=== PATIENT | male | born 1970 | race Caucasian/White ===

== ENCOUNTER → 2019-04-12 08:01 | Outpatient (CLI) | payer MEDICARE ==
[2013-01-09 08:53] VITALS: BMI 33.0
[~2019-04-12 08:01] MED LIST: HYDROCODON-ACE1 EA10 PO; IBUPROFEN800 MG; LISINOPRIL10 MG PO; MORPHINE SULFAT15 M4 PO; OMEPRAZOLE40 MG PO; PLAVIX75 MG PO; PREDNISONE10 MG PO; XANAX1 MG PO
[2019-04-23 09:25] VITALS: BMI 29.4
== END | disposition home or self-care (01) ==
LOC: D.HCCARDIO 08:01
PROVIDERS: ATTEND Internal Medicine Interventional Cardiology
DX: I20.9 Angina pectoris, unspecified (principal); R06.02 Shortness of breath; R06.00 Dyspnea, unspecified; I10 Essential (primary) hypertension

== ENCOUNTER → 2019-04-13 11:07 | Outpatient (CLI) | payer MEDICARE ==
[2013-01-09 08:53] VITALS: BMI 33.0
--- NOTE | 2019-04-13 14:45 | EC ---
PATIENT:DARIUS SALVADOR DATE OF SERVICE: 04/13/19 SEX: M MEDICAL RECORD: [id number] DATE OF : 66 LOCATION:[facility] AGE OF PATIENT: 48 ADMISSION DATE: 04/13/19 REFERRING PHYSICIAN: INTERPRETING PHYSICIAN: AMELIA TIMMONS MD ECHOCARDIOGRAM REPORT ECHO CHARGES 4 ECHO COMPLETE Date: 04/13/19 CLINICAL DIAGNOSIS: ANGINA/SOB/TELLO H/O HTN ECHOCARDIOGRAPHIC MEASUREMENTS (adult normal given) AC root (d.<3.7cm) 3.6 cm LV Septum d (<1.2 cm> 1.3 cm Valve Excursion 2.2 cm LV Septum (systole) 2.0 cm Left Atria (s.<4.0cm> 4.6 cm LVPW d(<1.2cm) 1.3 cm RV (d.<2.3cm) 3.2 cm LVPW (sytole) 2.0 cm LV diastole(<5.6CM) 6.6 cm MV E-F(>70mm/sec) cm LV systole 4.4 cm LVOT Diameter 2.0 cm MV exc.(>10mm) cm Est.ejection fraction (50-75%) % DOPPLER: LVIT cm/sec A 53.0 cm/sec E 74.0 cm/sec LA cm/sec RVSP 35.0 mmHg LVOT 115 cm/sec AOP1/2T m/s Asc. Ao 194 cm/sec RVOT 71.0 cm/sec RA cm/sec PA 125 cm/sec AV Gradient Peak 15.1 mmHg AV Mean 7.9 mmHg AV Area 1.8 cm MV Gradient Peak 3.9 mmHg MV Mean 1.3 mmHg MV Area cm COMMENTS: OP - HC Front Office Director: Jason LACY DEN[place] Metal Machinist: 1 Dr. Timmons TAPE# PACS Pericardial Effusion N DATE OF SERVICE: 04/13/2019 PROCEDURE: Echocardiogram. FINDINGS: 1. Left ventricular chamber size is mildly dilated. Left ventricular systolic function is preserved at 50%. 2. Left atrium is enlarged at 4.6 cm. Right atrium and right ventricular chamber sizes are as well mildly dilated. 3. Valvular structures have normal structure and motion. ECHOCARDIOGRAM REPORT [id number] DARIUS SALVADOR 4. Doppler interrogation reveals [id number] mitral regurgitation, mild tricuspid regurgitation, no other valvular insufficiency or stenosis. Pulmonary systolic pressure is estimated at 35 mmHg. 5. No evidence of pericardial effusion or left ventricular thrombus. TRANSINT:[id number] Voice Confirmation ID: [id number] DOCUMENT ID: [id number] AMELIA TIMMONS MD at 1445 CC: [id number] DICTATION DATE: 04/13/19 1423 HEALTH INFORMATION INTERNSHIP: 04/13/19 1440 REG [facility] [address] [place] [id number]
[2019-04-23 09:25] VITALS: BMI 29.4
--- NOTE | 2019-04-24 09:52 | ST ---
PATIENT:DARIUS SALVADOR MEDICAL RECORD: [id number] SEX: M [facility]ATION:[facility] ORDER #: ADMISSION DATE: 04/13/19 AGE OF PATIENT: 48 REFERRING PHYSICIAN: INTERPRETING PHYSICIAN: AMELIA COYLE MD DATE OF SERVICE: 04/13/2019 PROCEDURE: Nuclear stress test. INDICATION: Angina, shortness of breath, and hypertension. He was exercised on standard Lexiscan protocol with 33 mCi of sestamibi injected at peak stress, 11 mCi used previously for rest images. FINDINGS: Gated SPECT reveals a decreased ejection fraction at 42%, decreased thickening, and brightening throughout the inferior segments. SPECT imaging Cardiolite was used as myocardial perfusion agent. There is a mixed perfusion defect inferiorly and apically. This includes the basal, mid, apical inferior segments as well as the apex itself. There is reversibility throughout the entire defect. OVERALL IMPRESSION: This is an intermediate risk abnormal nuclear stress test with a relatively large area that is mixed, partially fixed, partially reversible throughout the entire inferior wall as well as the apex with a decreased ejection fraction at 42% in this patient with no past history of myocardial infarction to suggest a previous myocardial infarction and damian-infarct ischemia with ongoing symptomatology. We will proceed with coronary angiography as followup study. TRANSINT:[id number] Voice Confirmation ID: [id number] DOCUMENT ID: [id number] AMELIA COYLE MD at 0952 CC: LYN SOLORIO [id number] DICTATION DATE: 04/13/19 1510 TEMPLE MEAT CUTTER: 04/14/19 0411 DEP CLI 04/13/19 [place] [id number] [place] [id number]
== END | disposition home or self-care (01) ==
LOC: D.HCCARDIO 11:07
PROVIDERS: ATTEND Internal Medicine Interventional Cardiology
DX: I20.9 Angina pectoris, unspecified (principal); R06.02 Shortness of breath; I10 Essential (primary) hypertension

== ENCOUNTER 2019-04-23 08:48 | Outpatient (CLI) | payer MEDICARE ==
[~2019-04-23] VITALS: Ht 177.8 cm; Wt 93.2 kg
--- NOTE | ~2019-04-23 | HEMODYNAMI ---
PATIENT:DARIUS SALVADOR MEDICAL RECORD: [id number] : 66 LOCATION:D.CAT ADMISSION DATE: 04/23/19 Generatedon:04/23/201911:53 Patient name: DARIUS SALVADOR Patient #: [id number] : 1970 Date of study: 04/23/2019 Page: Of Hemodynamic Procedure Report Patient Data Patient Demographics Procedure consent was obtained First Name: DARIUS Gender: Male Last Name: MODESTO : 1970 Middle Initial: MAYDA Age: 48 year(s) Patient #: [id number] Race: SSN: [id number] Additional ID: [id number] Contact details Address: [address] [place] [address] State: [place] City: [place] Zip code: [address] Past Medical History Allergies: No known allergies Admission Admission Data Admission Date: 04/23/2019 Admission Time: 8:48 Arrival Date: 04/23/2019 Arrival Time: 0:00 Admit Source: Other Insurance Payor: Medicare [facility] #: [id number] Height (in.): 70 BSA: 2.11 (m2) Height (cm.): 177.8 BMI: 29.48 (kg/m2) Weight (lbs.): 205.43 Weight (kg.): 93.18 Lab Results Lab Result Date: 04/23/2019 Lab Result Time: 9:02 Biochemistry Name Units Result Min Max BUN mg/dl 18 --(---*)-- 7 18 Creatinine mg/dl 1 --(--*-)-- 0.6 1.3 CBC Name Units Result Min Max Hematocrit % 47 --(-*--)-- 42 54 Hemoglobin g/dl 16.2 --(--*-)-- 13.5 17.5 Procedure Procedure Types Cath Procedure Diagnostic Procedure [facility] w/Coronaries FFR/IVUS FFR Initial Intra-Coronary IVUS Initial PCI Procedure Coronary Stent Coronary Stent Initial Procedure Description Procedure Date Procedure Date: 04/23/2019 Procedure Start Time: 11:20 Procedure End Time: 11:53 Procedure Staff Name Function Carlos Timmons MD Performing Physician Mauricio Warren RT Scrub Jack Ponce RT Monitor Akash Blackwell RN Nurse Eugenie Iverson RT Scrub Procedure Data Cath Procedure Fluoroscopy Diagnostic fluoroscopy Total fluoroscopy Time: 5.4 time: 5.4 min min Diagnostic fluoroscopy Total fluoroscopy dose: 888 dose: 888 mGy mGy Contrast Material Contrast Material Type Amount (ml) Isovue 300 146 Entry Location Entry Primary Successful Side Size Upsize Upsize Entry Closure Succes sful Closure Location (Fr) 1 (Fr) 2 (Fr) Remarks Device Remarks Femoral Right 5 Fr 6 Fr Exoseal artery Short Estimated blood loss: 10 ml Diagnostic catheters Device Type Used For End Catheter Placement MULTIPACK Pigtail 5 Fr Procedure catheter MULTIPACK JL 4.0 5Fr Procedure catheter MULTIPACK 3DRC 5Fr Procedure catheter Procedure Complications No complications Procedure Medications Medication Administration Route Dosage 0.9% NaCl I.V. 100 ml/hr Oxygen etCO2 Nasal cannula 2 l/min Heparin Flush Bag added to field 2 bags (1000units/500ml NS) Lidocaine 2% added to field 20 Versed I.V. 2 mg Fentanyl I.V. 100 mcg Versed I.V. 2 mg Fentanyl I.V. 100 mcg Versed I.V. 2 mg Heparin Bolus I.V. 4000 units Integrilin (Bolus I.V. 8.5 ml 2mg/ml) Integrilin (Bolus wasted 1.5 ml 2mg/ml) Plavix P.O. 600 mg Hemodynamics Rest BSA: 2.11 (m2) HGB: 16.2 (g/dl) O2 Consumption: Estimated: 243.93 (ml/min) O2 Co nsumption indexed: Estimated:115.61 (ml/min/m) Heart Rate: 59 (bpm) Snapshots Pre Cath Intra NCS Post Cath Vital Signs Time Heart Resp SPO2 etCO2 NIBP (mmHg) Rhythm Pain Sedation Rate (ipm) (%) (mmHg) Status Level (bpm) 11:06:00 64 22 97 0 115/72(84) NSR 0 (11) 10(A) , No pain 11:10:18 68 30 98 41.1 106/65(89) NSR 0 (11) 10(A) , No pain 11:14:30 78 16 96 30.7 116/68(83) NSR 0 (11) 10(A) , No pain 11:18:46 71 20 97 32.9 104/64(78) NSR 0 (11) 10(A) , No pain 11:22:56 73 14 88 26.9 94/56(83) NSR 0 (11) 9(A) , No pain 11:27:06 72 13 95 25.4 109/63(79) NSR 0 (11) 9(A) , No pain 11:31:16 76 13 92 20.2 107/57(79) NSR 0 (11) 9(A) , No pain 11:35:32 77 12 95 11.9 84/55(77) NSR 0 (11) 9(A) , No pain 11:39:34 79 14 96 47.9 102/69(90) NSR 0 (11) 10(A) , No pain 11:43:43 79 16 96 46.4 98/69(91) NSR 0 (11) 10(A) , No pain 11:48:43 80 11 32.2 125/82(100) NSR 0 (11) 10(A) , No pain 11:52:42 47.2 No Cuff NSR 0 (11) 10(A) , No pain Medications Time Medication Route Dose Verified Delivered Reason Notes Effectiveness by by 11:08:17 0.9% NaCl I.V. 100 Akash Akash Per physician ml/hr Rishi Blackwell RN RN 11:08:26 Oxygen etCO2 2 Akash Akash for low 02 sats Nasal l/min Rishi Blackwell cannula RN RN 11:08:37 Heparin Flush added 2 Akash Akash used for Bag to bags Rishi Blackwell procedure (1000units/500ml field NERI RN NS) 11:08:48 Lidocaine 2% added 20ml Akash Akash for local to vial Rishi Blackwell anesthetic field DARON NERI 11:18:53 Versed I.V. 2 mg Akash Akash for sedation Rishi Blackwell RN RN 11:19:03 Fentanyl I.V. 100 Akash Akash for sedation mcg Rishi Blackwell RN RN 11:20:33 Versed I.V. 2 mg Akash Akash for sedation Rishi Blackwell RN RN 11:20:40 Fentanyl I.V. 100 Akash Akash for sedation mcg Rishi Blackwell RN RN 11:22:54 Versed I.V. 2 mg Akash Akash for sedation Rishi Blackwell RN RN 11:30:03 Heparin Bolus I.V. 4000 Akash Akash for units Rishi Blackwell anticoagulation RN RN 11:30:16 Integrilin I.V. 8.5 Akash Akash for (Bolus 2mg/ml) ml Rishi Blackwell antiplatelet RN RN therapy 11:30:30 Integrilin wasted 1.5 Akash Akash to sharp's (Bolus 2mg/ml) ml Rishi Blackwell RN RN 11:43:17 Plavix P.O. 600 Akash Akash for mg Rishi Blackwell antiplatelet RN RN therapy Procedure Log Time Note 10:56:20 Informed consent obtained and on chart 10:58:23 Admit Source: Other 10:58:52 Procedure Status Elective Heart Cath (OP). 10:58:55 Akash Blackwell RN sent for patient. Start room use. 10:58:56 Time tracking: Regular hours (M-F 7:00 - 5:00) 10:58:59 Plan of Care:Hemodynamics will remain stable., Cardiac rhythm will remain stable., Comfort level will be maintained., Respiratory function will remain adequate., Patient/ family verbilizes understanding of procedure., Procedure tolerated without complication., Recovers from procedure without complications.. 11:00:05 ACC Patient presents with Unstable Angina CCS Anginal Class 3--Marked limitation of physical activity, angina occurs with ordinary activity.. 11:00:49 ACCPatient has been prescribed/administered the following anti-anginal medication within the last 2 weeks: YEVGENIY-Inhibitor 11:00:54 Patient received from Pre/Post Procedure Room to CCL 1 Alert and oriented. Tansferred to table in Supine position. 11:01:00 Warm blankets applied, and keegan hugger turned on for patient comfort. 11:01:01 Correct patient and procedure confirmed by team. 11:01:01 ECG and BP/O2 sat monitors applied to patient. 11:01:02 Pre-procedure instructions explained to patient. 11:01:02 Pre-op teaching completed and patient verbalized understanding. 11:01:09 H&P Date Dictated: 04/03/2019 Within 30 days and on chart., H&P Addendum completed by physician on day of procedure. (MUST COMPLETE FOR ALL OUTPATIENTS). 11:02:34 Patient allergic to No known allergies 11:03:23 Patient Height : 70 inches 11:03:27 Patient Weight : 205.43 lbs 11:03:44 Insurance Payor : Medicare 11:03:56 Arrival Date: 04/23/2019 12:00:00 AM 11:04:33 Lab Result : Hemoglobin 16.2 g/dl 11:04:33 Lab Result : Creatinine 1 mg/dl 11:04:33 Lab Result : BUN 18 mg/dl 11:04:33 Lab Result : Hematocrit 47 % 11:04:52 Vital chart was started 11:04:53 Baseline sample Acquired. 11:04:55 Rhythm: sinus rhythm 11:04:56 Full Disclosure recording started 11:05:00 Family in waiting room. 11:05:02 Patient NPO since Midnight. 11:05:03 Is the patient allergic to Iodine/contrast media? No. 11:05:07 Is patient on blood thinner?No 11:05:08 Patient diabetic? No. 11:05:10 Previous problem with sedation/anesthesia? No ? 11:05:12 Snore? Yes 11:05:12 Sleep apnea? No 11:05:19 Deviated septum? No 11:05:20 Opens mouth fully? Yes 11:05:21 Sticks out tongue? Yes 11:05:24 Airway obstruction? Yes COPD 11:05:26 Dentures? No ? 11:05:34 Pre procedure: right dorsailis pedis pulse 2+ Normal; easily identifiable; not easily obliterated 11:05:38 IV patent on arrival in left forearm with 0.9% NaCl at KVO. 11:05:41 Lab results completed and on chart. 11:05:43 Right groin area was prepped with chlora-prep and draped in sterile fashion 11:05:45 Alarms reviewed by R. N. 11:05:45 Sharps counted by scrub and verified by R.N. 11:05:48 Use device set Femoral Dx 11:05:49 ACIST Syringe (21071) opened to sterile field. 11:05:49 Bag Decanter (2002S) opened to sterile field. 11:05:50 Medline Cath Pack ([id number]) opened to sterile field. 11:05:51 ACIST Hand Control (26019) opened to sterile field. 11:05:51 ACIST Manifold (25920) opened to sterile field. 11:05:52 DIAGNOSTIC Multipack 5Fr catheter set (SH5798) opened to sterile field. 11:05:52 Tegaderm 4 x 4 (1626W) opened to sterile field. 11:05:53 EMERALD Guide Wire (422-801) opened to sterile field. 11:05:54 SHEATH 5FR Delphi (UYP019) opened to sterile field. 11:08:17 0.9% NaCl 100 ml/hr I.V. was administered by Akash Blackwell RN; Per physician; 11:08:26 Oxygen 2 l/min etCO2 Nasal cannula was administered by Akash Blackwell RN; for low 02 sats; 11:08:37 Heparin Flush Bag (1000units/500ml NS) 2 bags added to field was administered by Akash Blackwell RN; used for procedure; 11:08:48 Lidocaine 2% 20ml vial added to field was administered by Akash Blackwell RN; for local anesthetic; 11:11:02 2) 60-89 Mildly reduced kidney function, and other findings (as for stage 1) point to kidney disease. 11:13:01 Maximum allowable contrast dose (3.7 X eGFR X 0.75)233 ml. 11:15:49 Physician arrived 11:15:50 --------ALL STOP TIME OUT------ 11:15:51 Final Timeout: patient, procedure, and site verified with staff and physician. All members of the team are in agreement. 11:15:53 Right groin site verified by team. 11:16:05 FAILED ALLENS 11:16:12 Fire Safety Assessment: A--An alcohol-based skin anteseptic being used preoperatively., C--Open oxygen or nitrous oxide is being used., D--An ESU, laser, or fiber-optic light is being used. 11:16:16 Physical assessment completed. ASA score P 2 - A patient with mild systemic disease as per Carlos Timmons MD. 11:16:21 Sedation plan: IV Moderate Sedation Medication:Versed, Fentanyl 11:18:53 Versed 2 mg I.V. was administered by Akash Lorigan RN; for sedation; 11:19:03 Fentanyl 100 mcg I.V. was administered by Akash Blackwell RN; for sedation; 11:20:06 Local anesthetic to right femoral artery with Lidocaine 2% by Carlos Timmosn MD.INITIAL ACCESS ONLY 11:20:22 Procedure started. 11:20:33 Versed 2 mg I.V. was administered by Akash Blackwell RN; for sedation; 11:20:36 A 5 Fr sheath was inserted into the Right Femoral artery 11:20:40 Fentanyl 100 mcg I.V. was administered by Akash Blackwell RN; for sedation; 11:20:42 A MULTIPACK Pigtail 5 Fr catheter was advanced over the wire and used for Procedure. 11:20:49 Zero performed for pressure channel P1 11::19 Zero performed for pressure channel P1 11::19 Zero performed for pressure channel P1 11:22:37 LV hemodynamics recorded. 11:22:42 LV gram done using LION 11:22:48 EF : 50 % 11:22:50 Catheter removed. 11::54 Versed 2 mg I.V. was administered by Akash Blackwell RN; for sedation; 11::58 A MULTIPACK JL 4.0 5Fr catheter was advanced over the wire and used for Procedure. 11:23:40 LCA angiography performed. 11:24:58 Catheter removed. 11:25:06 A MULTIPACK 3DRC 5Fr catheter was advanced over the wire and used for Procedure. 11:25:35 RCA angiography performed. 11:26:11 Catheter removed. 11:26:13 Proceeding to intervention. 11:26:41 INFLATOR Merit BasixCompak (AW6486) opened to sterile field. 11:26:43 SHEATH 6FR Delphi (OPG469) opened to sterile field. 11:26:43 Evarts Verrata Plus pressure wire (83030V) opened to sterile field. 11:27:27 GUIDE 6FR 3DRC SH catheter ([id number]) opened to sterile field. 11:28:01 Sheath upsized to a 6 Fr Short. 11:28:31 6 Fr 3DRC SH guide catheter was inserted over the wire 11:29:26 PRESSURE wire advanced. 11:30:03 Heparin Bolus 4000 units I.V. was administered by Akash Blackwell RN; for anticoagulation; 11:30:16 Integrilin (Bolus 2mg/ml) 8.5 ml I.V. was administered by Akash Blackwell RN; for antiplatelet therapy; 11:30:30 Integrilin (Bolus 2mg/ml) 1.5 ml wasted was administered by Akash Blackwell RN; to sharp's; 11:31:50 IFR .94 11:32:04 Evarts [place] IVUS Catheter (39431P) opened to sterile field. 11:32:12 Wire removed. 11:33:57 FFR/IVUS 11:33:58 IVUS catheter advanced over wire. 11:35:13 IVUS pass to RCA lesion performed. 11:35:15 IVUS catheter removed over wire. 11:35:20 IVUS measurement 82.7 %. 11:38:26 Place stent Inflation Number: 1 A COBRA RX 3.5 X 15 Stent was prepped and advanced across the Prox RCA 83. The stent was deployed at 17 ELLEN for 0:10 (min:sec) 0. 11:39:08 Stent catheter was removed intact over wire. 11:42:34 Place stent Inflation Number: 1 A COBRA RX 3.5 X 30 Stent was prepped and advanced across the Dist RCA 70. The stent was deployed at 17 ELLEN for 0:10 (min:sec) 0. 11:42:54 Stent catheter was removed intact over wire. 11:42:55 Wire removed. 11:42:56 Guide catheter removed. 11:43:16 EXOSEAL 6Fr (EX600) opened to sterile field. 11:43:17 Plavix 600 mg P.O. was administered by Akash Blackwell RN; for antiplatelet therapy; 11:45:40 ACT drawn and resulted at 210 seconds. (normal therapeutic range 180-240 seconds). 11:49:08 Procedure type changed to Cath procedure, Diagnostic procedure, LHC, LHC w/Coronaries, FFR/IVUS, FFR Initial, Intra-Coronary IVUS Initial, PCI procedure, Coronary Stent, Coronary Stent Initial 11:49:37 Sheath removed intact; hemostasis achieved with Exoseal to the Right Femoral artery. 11:49:44 Procedure ended.(Physican Out) 11:50:30 Fluoroscopy time 05.40 minutes. 11:50:34 Fluoroscopy dose: 888 mGy 11:50:34 Flurop Dose total: 888 11:50:44 Dose Area Product 14203 mGy/cm. 11:50:51 Contrast amount:Isovue 300 146ml. 11:50:55 Maximum allowable dose exceeded? No. 11:50:58 Sharps counted by scrub and verified by R.N. 11:50:59 Insertion/operative site no bleeding no hematoma. 11:50:59 Insertion/operative site no bleeding no hematoma. 11:51:01 Post-op/insertion site Right Femoral artery dressed using a 4 x 4 and Tegaderm. 11:51:05 Post right femoral artery:stable, soft, clean and dry 11:51:07 Post Procedure Pulses reassessed and unchanged 11:51:11 Post-procedure physical assessment completed. ASA score P 2 - A patient with mild systemic disease as per Carlos Timmons MD. 11:51:14 Post procedure rhythm: unchanged. 11:51:17 Estimated blood loss: 10 ml 11:51:18 Post procedure instruction explained to patient.Patient verbalizes understanding. 11:51:19 Patient needs reinforcement of post procedure teaching. 11:51:19 Procedure and supply charges have been captured, reviewed, submitted and are correct. 11:53:12 Procedure Complication : No complications 11:53:13 Vital chart was stopped 11:53:13 See physician's report for complete and final results. 11:53:15 Report given to Pre/Post Procedure Room. 11:53:17 Patient transfered to Pre/Post Procedure Room with Stretcher. 11:53:18 Procedure ended. 11:53:18 Full Disclosure recording stopped 11:53:27 ACC-PCI Only Patient was given prescriptions, or instructed by Carlos Timmons MD to start/continue the following medications upon discharge: Aspirin, Plavix 11:53:28 End room use (Document Last) Intervention Summary Intervention Notes Time ActionType Lesion and Equipment Action# Pressure Duration Attributes Used 11:38:26 Place stent Prox RCA COBRA RX 1 17 00:10 3.5 X 15 Stent 11:42:34 Place stent Dist RCA COBRA RX 1 17 00:10 3.5 X 30 Stent Device Usage Item Name Manufacture Quantity Catalog Hospital Part Current Minimal Lot# / Number Charge Number Stock Stock Serial# Code ACIST Syringe Acist 1 59091 459147 202950 912899 20 (93443) Medical Systems Inc Bag Decanter Microtek 1 892539 27573 566308 5 (2001S) Medical Inc. Medline Cath Medline 1 [id number] 061585 53276 704725 5 Pack ([id number]) ACIST Hand Acist 1 08344 624950 199389 418188 5 Control Medical (32033) Systems Inc ACIST Manifold Acist 1 44535 277679 627484 993866 5 (17493) Medical Systems Inc DIAGNOSTIC Cardinal 1 JV5468 376399 30145 928552 30 Multipack 5Fr Health catheter set ([id number]) Tegaderm 4 x 4 3M 1 1626W 871354 179216 366712 5 (1626W) EMERALD Guide Cardinal 1 502-455 279869 751258 892294 5 Wire (502-455) Health SHEATH 5FR Terumo 1 SWC738 963291 074516 385120 5 Delphi (RHT404) MULTIPACK Cardinal 1 044705 5 Pigtail 5 Fr Health catheter MULTIPACK JL Cardinal 1 372751 5 4.0 5Fr Health catheter MULTIPACK 3DRC Cardinal 1 948165 5 5Fr catheter Health INFLATOR Merit Merit 1 XX8981 435838 970823 364417 15 BasAu FINANCIERS Medical (UT0867) SHEATH 6FR Terumo 1 KGN031 590063 286131 436400 40 Delphi (IFG657) Evarts Evarts 1 32097M 246276 602859016 069746 5 Verrata Plus pressure wire (21780F) GUIDE 6FR 3DRC Medtronic 1 [id number] 468517 249590 573064 1 SH catheter ([id number]) Evarts Evarts 1 18593H 658629 452899 071273 8 [place]ag[place] IVUS Catheter (09748I) COBRA RX 3.5 X Celonova 1 [id number] 061423 [id number] 0158903 2 [id number] 15 stent Biosciences () COBRA RX 3.5 X Celonova 1 [id number] 335367 [id number] [id number] 2 [id number] 30 stent Biosciences () EXOSEAL 6Fr Cardinal 1 EX600 096520 091255 772768 10 (EX600) Health Signature Audit [place] Stage Time Signature Unsigned Intra-Procedure 04/23/2019 Mauricio Warren 11:53:41 AM RT(R) Signatures Performing Physician : Signature : Carlos Timmons MD Date : Time : Monitor : Jack Ponce RT Signature : Date : Time : Nurse : Akash Blackwell Signature : RN Date : Time : [address] [place] [address]
[2019-04-23 09:25] VITALS: BP 118/83; Ht 177.8 cm; Wt 93.2 kg
[2019-04-23] MEDS ORDERED: HYDROCODON-ACE1 EA10 PO (09:31)
[2019-04-23] MEDS ORDERED: LISINOPRIL10 MG PO (09:31)
[2019-04-23] MEDS ORDERED: MORPHINE SULFAT15 M4 PO (09:31)
[2019-04-23] MEDS ORDERED: PREDNISONE10 MG PO (09:32)
[2019-04-23] MEDS ORDERED: XANAX1 MG PO (09:32)
[2019-04-23] MEDS ORDERED: IBUPROFEN800 MG (09:32)
[2019-04-23] MEDS ORDERED: OMEPRAZOLE40 MG PO (09:33)
[2019-04-23 09:43] LABS: BASOPHILS 0.2 % (0-2); HEMOGLOBIN 16.2 g/dL (13.5-17.5); IMMATURE GRANULOCYTES 0.4 % (0-5); LYMPHOCYTES 8.6 % (15-50); MCH 31.6 pg (26.0-34.0); MCHC 34.5 g/dL (31.0-37.0); MCV 91.6 fL (80.0-100.0); MEAN PLATELET VOLUME 9.5 fL (7.4-10.4); MONOCYTES 5.9 % (2-11); NEUTROPHILS 83.9 % (40-80); RBC 5.13 10x6/uL (4.20-6.10); RDW 13.4 % (11.5-14.5); WBC 10.1 10x3/uL (4.8-10.8)
[2019-04-23 09:47] LABS: CALC OSMOLALITY 280 mosm/kg (275-300); CALCIUM 8.6 mg/dL (8.5-10.1); CARBON DIOXIDE 27.6 mmol/L (21.0-32.0); CHLORIDE - SERUM 104 mmol/L (98-107); GLUCOSE 108 mg/dL (74-106); POTASSIUM - SERUM 4.3 mmol/L (3.5-5.1); SODIUM 139 mmol/L (136-145); UREA NITROGEN 18 mg/dL (7-18); eGFR NON AFRICAN AMERICAN 84 mL/min (90-120)
[2019-04-23 09:57] LABS: PLATELET COUNT 199 10x3/uL (130-400)
[2019-04-23] MEDS ORDERED: PLAVIX75 MG PO (12:10)
--- NOTE | 2019-04-23 12:15 | NUR ---
2L NC, NO RESP DISTRESS. RIGHT GROIN 6F EXOSEAL CDI, NO BLEEDING OR HEMATOMA NOTED. NO C/O PAIN OR NAUSEA. VSS. FAMILY AT BEDSIDE, CALL LIGHT WITHIN REACH.
[2019-04-23 12:35] LABS: CHOL - HDL RATIO 4.1 ratio (2.3-4.9); LDL-HDL RATIO 2.4 ratio (1.5-3.5)
--- NOTE | 2019-04-23 12:45 | NUR ---
RIGHT GROIN 6F EXOSEAL CDI, NO BLEEDING OR HEMATOMA NOTED. DENIES ANY NEEDS AT THIS TIME. VSS. FAMILY AT BEDSIDE. WILL CONTINUE TO MONITOR.
--- NOTE | 2019-04-23 13:00 | NUR ---
RESTING QUIETLY WITH EYES CLOSED. RIGHT GROIN 6F EXOSEAL CDI, NO BLEEDING OR HEMATOMA NOTED. DENIES ANY NEEDS. VSS. CALL LIGHT WITHIN REACH.
--- NOTE | 2019-04-23 13:30 | NUR ---
CONTINUES TO REST COMFORTABLY WITH NO C/O. RIGHT GROIN 6F EXOSEAL CDI, NO BLEEDING NOTED. DENIES ANY NEEDS. VSS. CALL LIGHT WITHIN REACH.
--- NOTE | 2019-04-23 14:30 | NUR ---
VOIDED 550 CC INTO URINAL.
--- NOTE | 2019-04-23 15:00 | NUR ---
HOB ELEVATED 30 DEGREES. RIGHT GROIN 6F EXOSEAL CDI, NO BLEEDING NOTED. SIPPING ON DRINK AND EATING SANDWICH WITH NO C/O NAUSEA. VSS. WILL CONTINUE TO MONITOR CLOSELY.
--- NOTE | 2019-04-23 15:30 | NUR ---
LEFT PIV D/C'D WITH CATHETER INTACT, BAND AID TO SITE. RIGHT GROIN 6F EXOSEAL CDI, NO BLEEDING NOTED. UP TO BEDSIDE TO GET DRESSED.
--- NOTE | 2019-04-23 15:35 | NUR ---
DISCHARGE INSTRUCTIONS AND PLAVIX PRESCRIPTION GIVEN TO PT AND FAMILY. VERBALIZED UNDERSTANDING.
--- NOTE | 2019-04-23 15:45 | NUR ---
TAKEN OUT VIA WHEELCHAIR BY CATH HEAD CHOPPER. LEFT FACILITY WITH FAMILY AND ALL PERSONAL BELONGINGS.
--- NOTE | 2019-04-24 09:53 | OP ---
PATIENT NAME: DARIUS SALVADOR MEDICAL RECORD: [id number] :66 LOCATION:D.CAT ADMISSION DATE: SURGEON: AMELIA COYLE MD DATE OF OPERATION: 04/23/2019 PROCEDURES: 1. PTCA stent RCA. 2. Intravascular ultrasound RCA. 3. IFR RCA. 4. Left heart catheterization. 5. Selective coronary angiography. 6. Left ventriculogram. INDICATION: Angina and coronary artery disease. PROCEDURE PERFORMED: After informed consent was obtained and after a detailed description of risks, benefits as well as alternative therapies, the patient elected to proceed with angiogram and angioplasty. The right femoral area was prepped and draped in normal sterile fashion. The right femoral artery was cannulated via modified Seldinger technique with placement of 6-Armenian sheath. All catheters exchanged through this sheath. FINDINGS: Left ventriculogram was performed in standard 30-degree LION view, reveals good cardiac wall motion, ejection fraction estimated 60%. SELECTIVE CORONARY ANGIOGRAPHY: 1. Left main is with no significant angiographic disease. 2. Left anterior descending has moderate irregularities, but no flow-limiting stenosis. 3. The left circumflex has moderate irregularities, but no flow-limiting stenosis. 4. Right coronary artery has 83% stenosis throughout the proximal and mid vessel confirmed by intravascular ultrasound. IFR; however, was normal. Due to the fact that this is such a significant stenosis and this would be the only thing that would explain his symptomatology, decision was made to go ahead and proceed with stenting. Stenting was undertaken with a 3.5 x 15 and 3.5 x30 Cobra stents. Result was 0% residual stenosis. OVERALL IMPRESSION: Successful percutaneous transluminal coronary angioplasty stent of the right coronary artery going from 83% initial stenosis to 0% residual. TRANSINT:[id number] Voice Confirmation ID: [id number] DOCUMENT ID: [id number] AMELIA COYLE MD at 0953 CC: [id number] DICTATION DATE: 04/23/19 1153 TWIST MAKER: 04/23/19 1208 DEP CLI 04/23/19 [place] [id number] [place] [id number]
== END 2019-04-23 15:45 | disposition home or self-care (01) ==
LOC: D.CATH 08:48
PROVIDERS: ATTEND Internal Medicine Interventional Cardiology
DX: R94.30 Abnormal result of cardiovascular function study, unspecified (principal); I20.0 Unstable angina; R06.02 Shortness of breath

== ENCOUNTER 2019-10-28 02:14 | Inpatient (IN) | payer MEDICARE ==
[~2019-10-28] VITALS: Ht 177.8 cm; Wt 95.3 kg
[2019-10-28] VITALS (9 sets, daily range): BP systolic 101–132; BP diastolic 65–93; BMI 30.1
[~2019-10-28 02:14] MED LIST changes: -IBUPROFEN800 MG; +IBUPROFEN800 MG PO
[2019-10-28] MEDS ORDERED: BAYER CHEWABLE81 MG PO (02:18)
--- NOTE | 2019-10-28 02:25 | NUR ---
FLU SWAB SENT TO LAB
[2019-10-28 02:35] LABS: BASOPHILS 0.1 % (0-2); EOSINOPHILS 0.9 % (0-7); HEMATOCRIT 51.1 % (42.0-54.0); HEMOGLOBIN 17.2 g/dL (13.5-17.5); IMMATURE GRANULOCYTES 0.6 % (0-5); LYMPHOCYTES 9.3 % (15-50); MCH 31.1 pg (26.0-34.0); MCHC 33.7 g/dL (31.0-37.0); MCV 92.4 fL (80.0-100.0); MEAN PLATELET VOLUME 9.6 fL (7.4-10.4); MONOCYTES 9.8 % (2-11); NEUTROPHILS 79.3 % (40-80); PLATELET COUNT 188 10x3/uL (130-400); RBC 5.53 10x6/uL (4.20-6.10); RDW 13.5 % (11.5-14.5); WBC 8.5 10x3/uL (4.8-10.8)
[2019-10-28 02:40] LABS: APTT 29.5 SECONDS (22.8-39.4); INR 0.97 (0.85-1.17); PROTIME 12.8 SECONDS (11.6-15.0)
[2019-10-28 02:41] LABS: CALC OSMOLALITY 277 mosm/kg (275-300); CALCIUM 8.7 mg/dL (8.5-10.1); CARBON DIOXIDE 25.5 mmol/L (21.0-32.0); CHLORIDE - SERUM 99 mmol/L (98-107); CREATININE - SERUM 1.5 mg/dL (0.6-1.3); D-DIMER-QUANTITATIVE 0.41 ug/mLFEU (0.20-0.54); GLUCOSE 101 mg/dL (74-106); POTASSIUM - SERUM 3.9 mmol/L (3.5-5.1); SODIUM 137 mmol/L (136-145); UREA NITROGEN 25 mg/dL (7-18); eGFR NON AFRICAN AMERICAN 52 mL/min (90-120)
[2019-10-28 03:04] LABS: ALBUMIN 3.7 g/dL (3.4-5.0); ALKALINE PHOSPHATASE 70 U/L (30-120); ALT (SGPT) 42 U/L (10-68); BILIRUBIN - TOTAL 0.38 mg/dL (0.2-1.3); CREATINE KINASE 494 UL (21-232); LIPASE 188 U/L (73-393); MAGNESIUM - SERUM 1.6 mg/dL (1.8-2.4); PRO BNP 176 pg/mL (0-125); PROTEIN - SERUM 6.8 g/dL (6.4-8.2); THYROID STIMULATING HORMONE 0.67 uIU/mL (0.36-3.74); TROPONIN-I 0.027 ng/mL (0.000-0.060)
[2019-10-28 03:05] LABS: CKMB 0.3 U/L (0.0-3.6)
[2019-10-28 04:00] LABS: APPEARANCE CLEAR (CLEAR); BILIRUBIN NEGATIVE (NEGATIVE); COLOR YELLOW (YELLOW); GLUCOSE NEGATIVE (NEGATIVE); KETONE SMALL mg/dL (NEGATIVE); NITRITE NEGATIVE (NEGATIVE); PROTEIN NEGATIVE (NEGATIVE); SPECIFIC GRAVITY 1.015 (1.005-1.020); UROBILINOGEN NORMAL (NORMAL)
--- NOTE | 2019-10-28 04:05 | NUR ---
PT TEMP INCREASED, EDP NOTIFIED.
[2019-10-28 04:08] LABS: UDS - AMPHET NEGATIVE QUAL (NEGATIVE); UDS - BARB NEGATIVE QUAL (NEGATIVE); UDS - BENZO NEGATIVE QUAL (NEGATIVE); UDS - COCAINE NEGATIVE QUAL (NEGATIVE); UDS - OPIATE POSITIVE QUAL (NEGATIVE); UDS - PCP NEGATIVE QUAL (NEGATIVE); UDS - THC NEGATIVE QUAL (NEGATIVE)
--- NOTE | 2019-10-28 04:41 | NUR ---
PT REPORTS DECREASE IN PAIN AFTER RECEIVING IV MORPHINE AND ZOFRAN ORDERED.
[2019-10-28] MEDS ORDERED: LIPITOR10 MG PO (05:17)
[2019-10-28] MEDS ORDERED: TESTOST CYP INJ 200 IM (05:25)
--- NOTE | 2019-10-28 11:41 | NUR ---
RECIEVED REPORT THIS MORNING, AND DID ASSESSMENT. PATIENT HAS HAD A FEVER. HE IS ON DROPLET ISO FOR FLU. FAMILY AT BEDSIDE IS VERY UPSET AND THEY ARE ARGUING OVER THE PATIENT. AT BEDSIDE WILL NOT WEAR HER FACE MASK.
--- NOTE | 2019-10-28 19:20 | NUR ---
RECEIVED UP ION BED WITH EYES OPEN AND TV ON. SPOUSE AT BEDSIDE WITH EYES CLOSED. NALERT AND ORIENTED X4. UP AD PEG. REMAINS IN DROPLET ISOLATION R/T FLU. O2@ 2 LITERS PER N/C IN PLACE. IV TO RIGHT CONRAD HERNÁNDEZ AT 125/HR. DENIES ANY NEEDS AT THIS TIME.
[2019-10-29] VITALS: BP 123/71
[2019-10-29 04:00] VITALS: BP 131/78
[2019-10-29 06:07] LABS: ANION GAP 12.1 mmol/L (8-16); CALCIUM 7.2 mg/dL (8.5-10.1); CARBON DIOXIDE 27.8 mmol/L (21.0-32.0); CREATININE - SERUM 1.2 mg/dL (0.6-1.3); MAGNESIUM - SERUM 1.6 mg/dL (1.8-2.4); POTASSIUM - SERUM 3.9 mmol/L (3.5-5.1)
[2019-10-29 06:11] LABS: BASOPHILS 0.2 % (0-2); EOSINOPHILS 0.8 % (0-7); HEMATOCRIT 42.4 % (42.0-54.0); HEMOGLOBIN 14.2 g/dL (13.5-17.5); IMMATURE GRANULOCYTES 0.2 % (0-5); LYMPHOCYTES 15.6 % (15-50); MCH 30.7 pg (26.0-34.0); MCHC 33.5 g/dL (31.0-37.0); MCV 91.8 fL (80.0-100.0); MEAN PLATELET VOLUME 9.3 fL (7.4-10.4); MONOCYTES 12.6 % (2-11); NEUTROPHILS 70.6 % (40-80); RBC 4.62 10x6/uL (4.20-6.10); RDW 13.7 % (11.5-14.5)
[2019-10-29 06:43] LABS: PLATELET COUNT 133 10x3/uL (130-400)
--- NOTE | 2019-10-29 08:19 | NUR ---
PT STATES HE WANTS REGULAR FOODS. I STATED I WILL ORDER REGULAR DIET FOR LUNCH. PT VERBALIZED UNDERSTANDING.
[2019-10-29 09:51] VITALS: BP 130/96
[2019-10-29 13:46] VITALS: Ht 177.8 cm; Wt 95.3 kg
[2019-10-29 14:00] VITALS: BP 136/70
[2019-10-29 16:00] VITALS: BP 102/60
--- NOTE | 2019-10-29 16:25 | NUR ---
I have reviewed this patient and I concur with the Shift Assessment completed by the Licensed Practical Nurse today this shift.
--- NOTE | 2019-10-29 19:14 | NUR ---
RECEIVED UP IN BED WITH SPOUSE AT BEDSIDE. ALERT AND ORIENTED X4. UP AD PEG TO B/R. O2@ 2 LITERS PER N/C. IV TOO RT FA WITH NS AT 50CC/HR. NO REDNESS OR SWELLING TO SITE. DSG CDI. TELEMETRY IN PLACE. REMAINS IN DROPLET ISOLATION R/T FLU TYPE A POSITIVE. DENIES ANY NEEDS AT THIS TIME.
[2019-10-29 20:00] VITALS: BP 108/75
--- NOTE | 2019-10-29 22:47 | NUR ---
REFUSED MORPHINE STATING " IT GIVES ME A HEADACHE AND I DON'T WANT IT".
[2019-10-30] VITALS: BP 108/71
[2019-10-30 04:00] VITALS: BP 127/75
[2019-10-30 06:09] LABS: BASOPHILS 0.2 % (0-2); EOSINOPHILS 2.4 % (0-7); HEMOGLOBIN 15.3 g/dL (13.5-17.5); IMMATURE GRANULOCYTES 0.2 % (0-5); LYMPHOCYTES 15.4 % (15-50); MCH 30.8 pg (26.0-34.0); MCV 90.5 fL (80.0-100.0); MEAN PLATELET VOLUME 9.4 fL (7.4-10.4); MONOCYTES 11.7 % (2-11); NEUTROPHILS 70.1 % (40-80); PLATELET COUNT 128 10x3/uL (130-400); RBC 4.97 10x6/uL (4.20-6.10); RDW 13.4 % (11.5-14.5); WBC 5.4 10x3/uL (4.8-10.8)
[2019-10-30 06:32] LABS: CALC OSMOLALITY 268 mosm/kg (275-300); CALCIUM 7.3 mg/dL (8.5-10.1); CARBON DIOXIDE 28.4 mmol/L (21.0-32.0); CHLORIDE - SERUM 99 mmol/L (98-107); CREATININE - SERUM 0.9 mg/dL (0.6-1.3); GLUCOSE 93 mg/dL (74-106); MAGNESIUM - SERUM 1.5 mg/dL (1.8-2.4); POTASSIUM - SERUM 4.2 mmol/L (3.5-5.1); SODIUM 134 mmol/L (136-145); UREA NITROGEN 14 mg/dL (7-18); eGFR NON AFRICAN AMERICAN > 90 mL/min (90-120)
--- NOTE | 2019-10-30 08:32 | EC ---
PATIENT:DARIUS SALVADOR DATE OF SERVICE: 10/28/19 SEX: M MEDICAL RECORD: [id number] DATE OF : [birth year] LOCATION:D.M2 D.210 AGE OF PATIENT: 49 ADMISSION DATE: 10/29/19 REFERRING PHYSICIAN: INTERPRETING PHYSICIAN: JARED SANCHEZ MD ECHOCARDIOGRAM REPORT ECHO CHARGES 4 ECHO COMPLETE Date: 10/28/19 CLINICAL DIAGNOSIS: DYSPNEA/FLU ECHOCARDIOGRAPHIC MEASUREMENTS (adult normal given) AC root (d.<3.7cm) 3.3 cm LV Septum d (<1.2 cm> 1.3 cm Valve Excursion 1.3 cm LV Septum (systole) 1.7 cm Left Atria (s.<4.0cm> 3.9 cm LVPW d(<1.2cm) 1.4 cm RV (d.<2.3cm) 4.3 cm LVPW (sytole) 1.8 cm LV diastole(<5.6CM) 5.7 cm MV E-F(>70mm/sec) cm LV systole 4.3 cm LVOT Diameter 2.5 cm MV exc.(>10mm) 2.0 cm Est.ejection fraction (50-75%) % DOPPLER: LVIT cm/sec A 76.0 cm/sec E 57.0 cm/sec LA cm/sec RVSP 24 mmHg LVOT 126 cm/sec AOP1/2T m/s Asc. Ao 188 cm/sec RVOT 98 cm/sec RA cm/sec PA 127 cm/sec AV Gradient Peak 14.13mmHg AV Mean 8.48 mmHg AV Area 3.4 cm MV Gradient Peak 2.59 mmHg MV Mean 1.58 mmHg MV Area cm COMMENTS: Graduation Coach: 2 ENIO GRAYSON Retail Marketing Manager: 3 Dr. Greene TAPE# PACS Pericardial Effusion N DATE OF SERVICE: Adequate 2D, color flow imaging, spectral Doppler, and M-Mode. LVH is present. LV internal dimensions are normal. Wall motion is normal. EF is greater than or equal to 55%. Aortic valve is tricuspid. No evidence of stenosis by Doppler interrogation. Left atrium is normal at 3.9 cm. Mitral valve shows no prolapse. Trace MR. Right-sided chambers are grossly normal. Trace TR. ECHOCARDIOGRAM REPORT [id number] DARIUS SALVADOR TRANSINT:[id number] Voice Confirmation ID: [id number] DOCUMENT ID: [id number] JARED SANCHEZ MD at 0832 CC: [id number] DICTATION DATE: 10/29/19934 LETTUCE TRIMMER: 10/29/19 1126 ADM IN [place] [id number] [place] [id number]
[2019-10-30 10:04] VITALS: BP 114/73
--- NOTE | 2019-10-30 13:43 | NUR ---
PT LYING IN BED. EYES CLOSED. CHEST RISING AND FLALING. BED LOW. CL IN REACH.
[2019-10-30 14:31] VITALS: BP 100/67
--- NOTE | 2019-10-30 14:39 | NUR ---
I have reviewed this patient and I concur with the Shift Assessment completed by the Licensed Practical Nurse today this shift.
[2019-10-30 15:34] LABS: ALBUMIN 3.2 g/dL (3.4-5.0); BILIRUBIN - DIRECT 0.1 mg/dL (0.00-0.30); BILIRUBIN - INDIRECT 0.1 mg/dL (0.00-1.00); BILIRUBIN - TOTAL 0.2 mg/dL (0.2-1.3); PROTEIN - SERUM 5.6 g/dL (6.4-8.2)
[2019-10-30] MEDS ORDERED: TAMIFLU75 MG PO (17:41)
--- NOTE | 2019-10-30 18:35 | NUR ---
RIGHT FA 20G IV DC'D WITH CATH INTACT. TELEMETRY DC'D. DISCHARGE INSTRUCTIONS GIVEN TO PT. PT VERBALIZED UNDERSTANDING. CHART COPY SIGNED. WILL GET WC TO TAKE PT DOWN STAIRS.
--- NOTE | 2019-10-30 18:37 | NUR ---
PT TAKEN DOWN VIA WC BY STAFF ELECTRONIC WARFARE OFFICER AND LEFT WITH SPOUSE IN PERSONAL VEHICLE.
--- NOTE | 2019-10-31 08:04 | MORECARE ---
CASE MANAGEMENT DISCHARGE SUMMARY PATIENT: DARIUS SALVADOR UNIT: [id number] ADM DATE: 10/29/19 AGE: 49 : [birth year] SEX: M ROOM/BED: D.2104 AUTHOR: SHAN KLINE PHYSICIAN: REFERRING PHYSICIAN: GARRISON DAVIS MD DATE OF SERVICE: 10/31/19 Discharge Plan Patient Name: DARIUS SALVADOR [facility] [facility] 1970 Planned Disposition: Home Anticipated Discharge Date: 10/30/19 Discharge Date: 10/30/2019 Expected LOS: 1 Initial Reviewer: [email or web address] Initial Review Date: 10/31/2019 Generated: 10/31/19 9:03 am Coverage Notice Reviewer: [email or web address] Melo Alexander Notice Issued Date-Time: 10/28/2019 18:41 Notice Type: Medicare Outpatient Observation Notice Notice Delivered To: Patient Relationship to Patient: Self Aadc Plans Staff Officer Name: Ramon Ramirez Delivery Method: HAND - Hand Delivered Analy Days: Prior Verbal Notification: Recipient Understood Notice: Yes Recipient Signature: Yes Med Rec Note Co-signed by Attending: Coverage Notice Comment: ANDREW delivered to and signed by patient. Original given to patient and one placed on the chart. Patient Name: DARIUS SALVADOR Page [phone] at 0804 All edits/amendments must be made on the electronic document DICTATION DATE: 10/31/19 08 CHHA: WALTER 10/31/19 08 RPT#: [id number] DC DATE:10/30/19 STATUS: DIS IN [facility] [address] [place] [address] END OF REPORT
== END 2019-10-30 18:41 | disposition home or self-care (01) | DRG 193 ==
LOC: D.ER 02:14 → D.M2 03:24 → OBSVTIME 03:24 → D.M2 10-29 14:12
PROVIDERS: Family Medicine; Internal Medicine Nephrology; ADMIT Family Medicine Adult Medicine; ATTEND Family Medicine Adult Medicine
DX: J10.1 Influenza due to other identified influenza virus with other respiratory manifestations (principal); J96.21 Acute and chronic respiratory failure with hypoxia; F17.213 Nicotine dependence, cigarettes, with withdrawal; N17.9 Acute kidney failure, unspecified; I25.10 Atherosclerotic heart disease of native coronary artery without angina pectoris; E83.42 Hypomagnesemia; J43.9 Emphysema, unspecified; I10 Essential (primary) hypertension

== ENCOUNTER → 2020-02-06 08:55 | Outpatient (CLI) | payer MEDICARE ==
[2019-10-29 13:46] VITALS: BMI 30.1
[~2020-02-06 08:55] MED LIST changes: +BAYER CHEWABLE81 MG PO; +LIPITOR10 MG PO; +TAMIFLU75 MG PO; +TESTOST CYP INJ 200 IM
== END | disposition home or self-care (01) ==
LOC: D.HCCARDIO 08:55
PROVIDERS: ATTEND Internal Medicine Cardiovascular Disease
DX: I25.10 Atherosclerotic heart disease of native coronary artery without angina pectoris (principal)

== ENCOUNTER 2020-02-13 07:57 | Outpatient (CLI) | payer MEDICARE ==
[~2020-02-13] VITALS: Ht 177.8 cm; Wt 94.1 kg
--- NOTE | ~2020-02-13 | HEMODYNAMI ---
PATIENT:DARIUS SALVADOR MEDICAL RECORD: [id number] : 66 LOCATION:D.CAT ADMISSION DATE: 02/13/20 Generatedon:02/13/202010:57 Patient name: DARIUS SALVADOR Patient #: [id number] : 1970 Date of study: 02/13/2020 Page: Of Hemodynamic Procedure Report Patient Data Patient Demographics Procedure consent was obtained First Name: DARIUS Gender: Male Last Name: MODESTO : 1970 Middle Initial: MAYDA Age: 49 year(s) Patient #: [id number] Race: SSN: [id number] Additional ID: [id number] Contact details [address]: [address] [place] [address] State: [place] City: [place] Zip code: [address] Past Medical History Allergies: No known allergies Admission Admission Data Admission Date: 02/13/2020 Admission Time: 7:57 Arrival Date: 02/13/2020 Arrival Time: 0:00 Admit Source: Other Insurance Payor: Medicare [facility] #: [id number] Height (in.): 69.69 BSA: 2.11 (m2) Height (cm.): 177 BMI: 30 (kg/m2) Weight (lbs.): 207.24 Weight (kg.): 94 Lab Results Lab Result Date: 02/13/2020 Lab Result Time: 0:00 CBC Name Units Result Min Max Hemoglobin g/dl 16.3 --(--*-)-- 13.5 17.5 Procedure Procedure Types Cath Procedure Diagnostic Procedure LHC LHC w/Coronaries Sedation Charges Moderate Sedation up to 15 minutes PCI Procedure PTCA PTCA Initial Hemochron ACT Test Procedure Description Procedure Date Procedure Date: 02/13/2020 Procedure Start Time: 10:38 Procedure End Time: 10:54 Procedure Staff Name Function Srinivas Caballero MD Performing Physician Erna Padilla RT Monitor Mily Bah RT Scrub Bela Land RN Nurse Procedure Data Cath Procedure Fluoroscopy Diagnostic fluoroscopy Total fluoroscopy Time: 3.5 time: 3.5 min min Diagnostic fluoroscopy Total fluoroscopy dose: 808 dose: 808 mGy mGy Contrast Material Contrast Material Type Amount (ml) Isovue 300 85 Entry Location Entry Primary Successful Side Size Upsize Upsize Entry Closure Succes sful Closure Location (Fr) 1 (Fr) 2 (Fr) Remarks Device Remarks Femoral Right 5 Fr 6 Fr Exoseal artery Short Estimated blood loss: 10 ml Diagnostic catheters Device Type Used For End Catheter Placement MULTIPACK JL 4.0 5Fr Procedure catheter MULTIPACK 3DRC 5Fr Procedure catheter MULTIPACK Pigtail 5 Fr Ventriculography catheter Procedure Complications No complications Procedure Medications Medication Administration Route Dosage 0.9% NaCl I.V. 100 ml/hr Oxygen etCO2 Nasal cannula 2 l/min Lidocaine 2% added to field 20 Heparin Flush Bag added to field 2 bags (1000units/500ml NS) Versed I.V. 2 mg Fentanyl I.V. 50 mcg Versed I.V. 2 mg Fentanyl I.V. 50 mcg Heparin Bolus I.V. 5000 units Integrilin (Bolus I.V. 8.5 ml 2mg/ml) Integrilin (Bolus wasted 1.5 ml 2mg/ml) Plavix P.O. 600 mg Hemodynamics Rest BSA: 2.11 (m2) O2 Consumption: Estimated: 256.62 (ml/min) O2 Consumption indexed : Estimated:121.62 (ml/min/m) Heart Rate: 76 (bpm) Pressure Samples Time Site Value (mmHg) Purpose Heart Use Rate(bpm) 10:42 LV 103/15,16 Snapshot 76 10:44 AO (69) Pullback 57 Gradients Valve Time Site Site Mean SEP/DFP Peak To Heart Use 1 2 (mmHg) (sec/min) Peak Rate (mmHg) (bpm) Aortic 10:44 LV AO 57 (69) Snapshots Pre Cath Intra NCS Post Cath Vital Signs Time Heart Resp SPO2 etCO2 NIBP (mmHg) Rhythm Pain Sedation Rate (ipm) (%) (mmHg) Status Level (bpm) 10:23:41 62 13 98 46.3 127/71(88) NSR 0 (11) 10(A) , No pain 10:27:51 70 16 98 41.8 117/71(89) NSR 0 (11) 10(A) , No pain 10:31:59 72 15 97 42.6 119/66(100) NSR 0 (11) 10(A) , No pain 10:35:54 68 13 96 42.6 105/70(83) NSR 0 (11) 10(A) , No pain 10:39:56 74 11 98 31.3 115/68(99) NSR 0 (11) 10(A) , No pain 10:44:04 78 14 98 35.8 117/63(85) NSR 0 (11) 10(A) , No pain 10:48:12 76 12 97 44.8 117/68(83) NSR 0 (11) 10(A) , No pain 10:52:17 78 14 98 36.6 131/75(90) NSR 0 (11) 10(A) , No pain Medications Time Medication Route Dose Verified Delivered Reason Notes Effectiveness by by 10:22:42 0.9% NaCl I.V. 100 Srinivas Bela used for ml/hr [place] procedure MD NERI 10:22:49 Oxygen etCO2 2 Srinivas Bela used for Nasal l/min [facility] procedure cannula MD NERI 10:22:54 Lidocaine 2% added 20ml Srinivas Pattersonory for local to vial [facility] anesthetic field MD DENISE 10:22:59 Heparin Flush added 2 Srinivas Srinivas used for Bag to bags [facility] procedure (1000units/500ml field MD DENISE NS) 10:38:18 Versed I.V. 2 mg Srinivas Bela for sedation [facility] MD, RN 10:38:23 Fentanyl I.V. 50 Srinivas Bela for sedation [facility] MD, RN 10:46:07 Versed I.V. 2 mg Srinivas Bela for sedation [facility] MD, RN 10:46:10 Heparin Bolus I.V. 5000 Srinivas Bela for verif ied units [facility] anticoagulation with Dr. MD NERI [place] 10:46:11 Fentanyl I.V. 50 Srinivas Bela for sedation [facility] MD, RN 10:46:24 Integrilin I.V. 8.5 Srinivas Bela for (Bolus 2mg/ml) ml [facility] antiplatelet RN therapy 10:46:48 Integrilin wasted 1.5 Srinivas Bela for (Bolus 2mg/ml) ml [facility] antiplatelet MD RN therapy 10:46:54 Plavix P.O. 600 Srinivas Cramer for mg [facility] Land antiplatelet RN therapy Procedure Log Time Note 10:03:52 Informed consent obtained and on chart 10:04:07 Procedure Status Elective Heart Cath (OP). 10:04:08 Time tracking: Regular hours (M-F 7:00 - 5:00) 10:04:10 Plan of Care:Hemodynamics will remain stable., Cardiac rhythm will remain stable., Comfort level will be maintained., Respiratory function will remain adequate., Patient/ family verbilizes understanding of procedure., Procedure tolerated without complication., Recovers from procedure without complications.. 10:04:13 Bela Land RN sent for patient. Start room use. 10:04:20 H&P Date Dictated: 01/28/2020 Within 30 days and on chart., H&P Addendum completed by physician on day of procedure. (MUST COMPLETE FOR ALL OUTPATIENTS). 10:15:04 Arrival Date: 02/13/2020 12:00:00 AM 10:15:18 Insurance Payor : Medicare 10:15:31 Patient Height : 69.69 inches 10:15:42 Patient Weight : 207.24 lbs 10:22:34 Vital chart was started 10:22:42 0.9% NaCl 100 ml/hr I.V. was administered by Bela Land RN; used for procedure; Verbal order read back and verified. 10:22:49 Oxygen 2 l/min etCO2 Nasal cannula was administered by Bela Land RN; used for procedure; Verbal order read back and verified. 10:22:54 Lidocaine 2% 20ml vial added to field was administered by Srinivas Caballero MD; for local anesthetic; Verbal order read back and verified. 10:22:59 Heparin Flush Bag (1000units/500ml NS) 2 bags added to field was administered by Srinivas Caballero MD; used for procedure; Verbal order read back and verified. 10:27:17 Lab Result : Hemoglobin 16.3 g/dl 10:27:33 Admit Source: Other 10:28:42 Family in waiting room. 10:28:51 Patient allergic to No known allergies 10:34:51 Is the patient allergic to Iodine/contrast media? No. 10:35:01 Is patient on blood thinner?No 10:35:04 Patient diabetic? No. 10:35:07 Snore? Yes 10:35:14 Sleep apnea? No 10:35:24 Airway obstruction? Yes copd,asthma 10:35:32 Patient pain scale 0/10 ?. 10:35:39 IV patent on arrival in left forearm with 0.9% NaCl at KVO. 10:37:19 Physician arrived 10:37:20 --------ALL STOP TIME OUT------ 10:37:20 Final Timeout: patient, procedure, and site verified with staff and physician. All members of the team are in agreement. 10:37:22 Right groin site verified by team. 10:37:28 Fire Safety Assessment: A--An alcohol-based skin anteseptic being used preoperatively., C--Open oxygen or nitrous oxide is being used., D--An ESU, laser, or fiber-optic light is being used. 10:37:33 Physical assessment completed. ASA score P 2 - A patient with mild systemic disease as per Srinivas Caballero MD. 10:38:11 2) 60-89 Mildly reduced kidney function, and other findings (as for stage 1) point to kidney disease. 10:38:15 Maximum allowable contrast dose (3.7 X eGFR X 0.75)166 ml. 10:38:18 Versed 2 mg I.V. was administered by Bela Land RN; for sedation; Verbal order read back and verified. 10:38:19 Sedation plan: IV Moderate Sedation Medication:Versed, Fentanyl 10:38:22 Use device set Femoral Dx 10:38:23 Fentanyl 50 mcg I.V. was administered by Bela Land RN; for sedation; Verbal order read back and verified. 10:38:25 Procedure started. 10:38:25 Full Disclosure recording started 10:38:49 Local anesthetic to right femoral artery with Lidocaine 2% by Srinivas Caballero MD.INITIAL ACCESS ONLY 10:38:57 A 5 Fr sheath was inserted into the Right Femoral artery 10:39:01 ACIST Syringe (12686) opened to sterile field. 10:39:02 Bag Decanter () opened to sterile field. 10:39:02 Medline Cath Pack ([id number]) opened to sterile field. 10:39:03 ACIST Hand Control (99080) opened to sterile field. 10:39:04 ACIST Manifold (89815) opened to sterile field. 10:39:04 DIAGNOSTIC Multipack 5Fr catheter set (FC1006) opened to sterile field. 10:39:06 Tegaderm 4 x 4 (1626W) opened to sterile field. 10:39:07 SHEATH 5FR [place] (AEF567) opened to sterile field. 10:39:08 EMERALD Guide Wire (502-636) opened to sterile field. 10:39:16 A MULTIPACK JL 4.0 5Fr catheter was advanced over the wire and used for Procedure. 10:39:24 LCA angiography performed. 10:40:37 Catheter removed. 10:40:44 A MULTIPACK 3DRC 5Fr catheter was advanced over the wire and used for Procedure. 10:41:01 RCA angiography performed. 10:41:13 Catheter removed. 10:41:37 A MULTIPACK Pigtail 5 Fr catheter was advanced over the wire and used for Ventriculography. 10:41:45 LV gram done using LION 10:42:37 EF : 55 % 10:42:39 Catheter removed. 10:44:03 INFLATOR Merit BasixCompak (PO2378) opened to sterile field. 10:44:04 WHISPER 300cm guide wire ([id number]) opened to sterile field. 10:44:05 SHEATH 6FR [place] (WGF025) opened to sterile field. 10:44:06 GUIDE 6FR HS I catheter (LA6HSI) opened to sterile field. 10:44:29 Proceeding to intervention. 10:44:38 Sheath upsized to a 6 Fr Short. 10:44:53 6 Fr HS1 guide catheter was inserted over the wire 10:44:59 Whisper wire advanced. 10:46:07 Versed 2 mg I.V. was administered by Bela Land RN; for sedation; Verbal order read back and verified. 10:46:10 Heparin Bolus 5000 units I.V. was administered by Bela Land RN; for anticoagulation; verified with Dr. Greene Verbal order read back and verified. 10:46:11 Fentanyl 50 mcg I.V. was administered by Bela Land RN; for sedation; Verbal order read back and verified. 10:46:24 Integrilin (Bolus 2mg/ml) 8.5 ml I.V. was administered by Bela Land RN; for antiplatelet therapy; Verbal order read back and verified. 10:46:48 Integrilin (Bolus 2mg/ml) 1.5 ml wasted was administered by Bela Land RN; for antiplatelet therapy; Verbal order read back and verified. 10:46:54 Plavix 600 mg P.O. was administered by Bela Land RN; for antiplatelet therapy; Verbal order read back and verified. 10:48:19 Inflate balloon Inflation number: 1 A EUPHORA 3.5 x 15 Balloon ([id number]) was prepped and advanced across the Mid RCA 80, then inflated to 12 ELLEN for 0:18 (min:sec) 0. 10:48:52 Inflation number: 2 The EUPHORA 3.5 x 15 Balloon ([id number]) was reinflated across the Mid RCA 0, to 10 ELLEN for 0:20 (min:sec) . 10:49:22 Inflation number: 3 The EUPHORA 3.5 x 15 Balloon ([id number]) was reinflated across the Mid RCA , to 10 ELLEN for 0:09 (min:sec) . 10:49:50 Inflation number: 4 The EUPHORA 3.5 x 15 Balloon ([id number]) was reinflated across the Mid RCA , to 10 ELLEN for 0:20 (min:sec) . 10:50:44 EXOSEAL 6Fr (EX600) opened to sterile field. 10:50:55 Wire removed. 10:51:04 Guide catheter removed. 10:51:22 Sheath removed intact; hemostasis achieved with Exoseal to the Right Femoral artery. 10:51:24 Procedure ended.(Physican Out) 10:51:57 Fluoroscopy time 03.50 minutes. 10:52:01 Fluoroscopy dose: 808 mGy 10:52:01 Flurop Dose total: 808 10:52:05 Dose Area Product 76873 mGy/cm. 10:52:12 Contrast amount:Isovue 300 85ml. 10:52:14 Maximum allowable dose exceeded? No. 10:52:15 Sharps counted by scrub and verified by R.N. 10:52:19 Insertion/operative site no bleeding no hematoma. 10:52:22 Post-op/insertion site Right Femoral artery dressed using a 4 x 4 and Tegaderm. 10:52:25 Post Procedure Pulses reassessed and unchanged 10:52:31 Post-procedure physical assessment completed. ASA score P 2 - A patient with mild systemic disease as per Srinivas Caballero MD. 10:52:34 Post procedure rhythm: unchanged. 10:52:37 Estimated blood loss: 10 ml 10:52:39 Post procedure instruction explained to patient.Patient verbalizes understanding. 10:52:43 Patient needs reinforcement of post procedure teaching. 10:53:17 Procedure type changed to Cath procedure, Diagnostic procedure, LHC, C w/Coronaries, Sedation Charges, Moderate Sedation up to 15 minutes, PCI procedure, PTCA, PTCA Initial, Hemochron ACT Test 10:53:54 Procedure and supply charges have been captured, reviewed, submitted and are correct. 10:54:25 Procedure Complication : No complications 10:54:28 Vital chart was stopped 10:54:46 [facility] Findings: MVD- PCI performed (see procedure note) 10:54:48 See physician's report for complete and final results. 10:54:49 Report given to Pre/Post Procedure Room. 10:54:53 Patient transfered to Pre/Post Procedure Room with Stretcher. 10:54:55 Procedure ended. 10:54:55 Full Disclosure recording stopped 10:55:01 End room use (Document Last) 10:55:18 End room use (Document Last) 10:55:40 End room use (Document Last) 10:56:13 ACT drawn and resulted at 186 seconds. (normal therapeutic range 180-240 seconds). Intervention Summary Intervention Notes Time ActionType Lesion and Equipment Action# Pressure Duration Attributes Used 10:48:19 Inflate Mid RCA EUPHORA 1 12 00:18 balloon 3.5 x 15 Balloon ([id number]) 10:48:52 Reinflate Mid RCA EUPHORA 2 10 00:20 balloon 3.5 x 15 Balloon ([id number]) 10:49:22 Reinflate Mid RCA EUPHORA 3 10 00:09 balloon 3.5 x 15 Balloon ([id number]) 10:49:50 Reinflate Mid RCA EUPHORA 4 10 00:20 balloon 3.5 x 15 Balloon ([id number]) Device Usage Item Name Manufacture Quantity Catalog Hospital Part Current Minimal L ot# / Number Charge Number Stock Stock Serial# Code ACIST Acist 1 82673 247680 108909 596725 20 Syringe Medical (32418) Systems Inc Bag Microtek 1 2001S 447157 64498 449631 5 Decanter Medical Inc. () Medline Medline 1 [id number] 224740 58760 473077 5 Cath Pack ([id number]) ACIST Hand Acist 1 99564 206004 084072 249930 5 Control Medical (63261) Systems Inc ACIST Acist 1 80432 110430 060665 786987 5 Manifold Medical (77458) Systems Inc DIAGNOSTIC Cardinal 1 JI2234 950603 41590 003962 30 Filter Squad 5Fr catheter set (RK8447) Tegaderm 4 3M 1 1626W 538398 450227 603079 5 x 4 (1626W) SHEATH 5FR Terumo 1 TUL968 384296 179312 606973 5 [place] (EVO519) EMERALD Cardinal 1 502-455 958231 782447 272720 5 Guide Wire Vendavo (502455) MULTIPACK Cardinal 1 142912 5 JL 4.0 5Fr Health catheter MULTIPACK Cardinal 1 137159 5 3DRC 5Fr Health catheter MULTIPACK Cardinal 1 783373 5 Pigtail 5 Health Fr catheter INFLATOR [facility] 1 KU6459 536789 584638 344300 15 [facility] BasixCompak (EF9628) WHISPER Smyth 1 [id number] 243858 557385 909819 5 300cm guide Vascular wire (0488285YO) SHEATH 6FR Terumo 1 FSE668 209376 160546 908213 40 [place] (KKU276) GUIDE 6FR Medtronic 1 LA6HSI 584463 02299 184491 1 HS I catheter (LA6HSI) EUPHORA 3.5 Medtronic 1 [id number] 848473 886372 635937 5 2 39285915 x 15 Balloon ([id number]) EXOSEAL 6Fr Cardinal 1 EX600 819612 742427 855791 10 (EX600) Health Signature Audit [place] Stage Time Signature Unsigned Intra-Procedure 02/13/2020 Erna Padilla 10:55:18 AM RT(R) Intra-Procedure 02/13/2020 Bela Land 10:55:40 AM RN Intra-Procedure 02/13/2020 Srinivas Rizzo 10:57:38 AM Abrahan MD Signatures Performing Physician : Signature : Srinivas Caballero MD Date : Time : Monitor : Erna Randy Signature : RT Date : Time : Nurse : Bela Land RN Signature : Date : Time : [place] [id number] [place] [address]
[2020-02-13] MEDS ORDERED: OMEPRAZOLE20 M1 PO (08:54)
[2020-02-13] MEDS ORDERED: LISINOPRIL20 MG PO (08:55)
[2020-02-13] MEDS ORDERED: LIPITOR10 MG PO (08:55)
[2020-02-13] MEDS ORDERED: PREDNISONE10 MG PO (08:56)
[2020-02-13 09:14] VITALS: BP 122/83; Ht 177.8 cm; Wt 94.1 kg
[2020-02-13 09:43] LABS: BASOPHILS 0.2 % (0-2); EOSINOPHILS 1.7 % (0-7); HEMATOCRIT 49.5 % (42.0-54.0); HEMOGLOBIN 16.3 g/dL (13.5-17.5); IMMATURE GRANULOCYTES 0.5 % (0-5); LYMPHOCYTES 12.8 % (15-50); MCH 31.2 pg (26.0-34.0); MCHC 32.9 g/dL (31.0-37.0); MCV 94.8 fL (80.0-100.0); MEAN PLATELET VOLUME 10.1 fL (7.4-10.4); MONOCYTES 7.8 % (2-11); RBC 5.22 10x6/uL (4.20-6.10); RDW 13.5 % (11.5-14.5); WBC 8.3 10x3/uL (4.8-10.8)
[2020-02-13 09:46] LABS: PLATELET COUNT 239 10x3/uL (130-400)
[2020-02-13 10:30] LABS: ANION GAP 9.3 mmol/L (8-16); CALCIUM 8.2 mg/dL (8.5-10.1); CARBON DIOXIDE 29.4 mmol/L (21.0-32.0); CHOL - HDL RATIO 4.5 ratio (2.3-4.9); CREATININE - SERUM 1.2 mg/dL (0.6-1.3); POTASSIUM - SERUM 4.7 mmol/L (3.5-5.1)
--- NOTE | 2020-02-13 11:05 | NUR ---
PT ARRIVED BY STRETCHER TO ROOM. PLACED ON MONITORS. ASSESSMENT COMPLETED. VSS. PT'S AT BEDSIDE. CALL LIGHT WITHIN REACH.
--- NOTE | 2020-02-13 11:20 | NUR ---
PT RESTING COMFORTABLY. HAVING TO BE REMINDED TO KEEP RIGHT LEG STRAIGHT. RIGHT GROIN DRESSING C/D/I. NO S/S OF HEMATOMA NOTED. PT C/O INDIGESTION FROM PLAVIX. TOLERATINS SIPS OF SPRITE AND BED PLACED IN REVERSE TREND AT THIS TIME.
[2020-02-13] MEDS ORDERED: PLAVIX75 MG PO (11:40)
--- NOTE | 2020-02-13 11:50 | NUR ---
PT RESTING COMFORTABLY AT THIS TIME. RIGHT GROIN DRESSING C/D/I. NO S/S OF HEMATOMA NOTED. CALL LIGHT WITHIN REACH.
--- NOTE | 2020-02-13 12:15 | NUR ---
PT SITTING UP IN BED. INSTRUCTED TO LAY BACK DOWN. HE KEEPS SAYING "I CAN'T KEEP DOING THIS". I RE EDUCATED HIM ON THE REASON HE HAS TO LAY FLAT IN SUPINE POSITION. HE EVENTUALLY LAID BACK DOWN. HIS RIGHT GROIN DRESSING IS C/D/I. NO S/S OF HEMATOMA NOTED AT THIS TIME. WILL CONTINUE TO MONITOR.
--- NOTE | 2020-02-13 12:40 | NUR ---
PT VOIDED 800cc OF CLEAR YELLOW URINE IN URINAL WITHOUT DIFFICULTY. RIGHT GROIN DRESSING C/D/I. NO S/S OF HEMATOMA NOTED.
--- NOTE | 2020-02-13 13:10 | NUR ---
RIGHT GROIN DRESSING C/D/I. NO S/S OF HEMATOMA NOTED. CALL LIGHT WITHIN REACH. VSS AT THIS TIME.
--- NOTE | 2020-02-13 13:58 | NUR ---
RIGHT GROIN DRESSING C/D/I. NO S/S OF HEMATOMA NOTED. CALL LIGHT WITHIN REACH. VSS AT THIS TIME. PT'S HEAD OF BED INC TO 30 DEGREES. TOLERATED WELL. SET UP WITH SANDWICH TRAY AND DRINK.
--- NOTE | 2020-02-13 14:30 | NUR ---
RIGHT GROIN DRESSING C/D/I. NO S/S OF HEMATOMA NOTED. CALL LIGHT WITHIN REACH. VSS AT THIS TIME.
--- NOTE | 2020-02-13 14:45 | NUR ---
PIV D/C'D WITH CATH TIP INTACT. TOLERATED WELL. PT INSTRUCTED TO GET UP AND DRESSED AT THIS TIME. AT BEDSIDE TO ASSIST.
--- NOTE | 2020-02-13 14:55 | NUR ---
DISCUSSED DISCHARGE INSTRUCTIONS WITH PT AND PT'S FAMILY. THEY VOICED UNDERSTANDING.
--- NOTE | 2020-02-13 15:00 | NUR ---
PT TAKEN DOWN TO VEHICLE BY WHEELCHAIR. NO S/S OF DISTRESS NOTED. ALL BELONGINGS AND PAPERWORK IN HAND.
--- NOTE | 2020-02-14 08:17 | OP ---
PATIENT NAME: DARIUS SALVADOR MEDICAL RECORD: [id number] :66 LOCATION:D.CAT ADMISSION DATE: SURGEON: JARED SANCHEZ MD DATE OF OPERATION: 02/13/2020 PROCEDURE: Left heart catheterization, selective coronary angiography, right femoral artery approach. CATHETERS: A 5-Ethiopian sheath, 5/4 left and right Palu, 5/4 pig. The procedure was well tolerated. The patient returned to the pond. Sheath removed. ExoSeal device placed. FINDINGS: Left ventriculography in 30-degree LION view; normal wall motion. Normal systolic function. CORONARY ANATOMY: LEFT MAIN: Left main is free of disease. LAD: Free of disease in the diagonal system. CIRCUMFLEX: Luminal irregularities, no flow obstructive disease. RIGHT CORONARY ARTERY: Area of previous stenting shows a discrete in-stent restenosis correlating nicely with nuclear study. PLAN: Intervention momentarily. DESCRIPTION OF PROCEDURE: A 5-Ethiopian sheath was exchanged for a 6-Ethiopian sheath. Hockey stick guiding catheter provided excellent guide catheter support. Balloon used was a 3.5 ____ [place] up to 18 atmospheres. Final angiography shows excellent resolution of discrete in-stent restenosis from 80% each. No significant residual. DYLON flow was 3 throughout the procedure. Heparin was used during the case. Sheath was closed with ExoSeal device. Plavix was loaded in the lab. TRANSINT:[id number] Voice Confirmation ID: [id number] DOCUMENT ID: [id number] JARED SANCHEZ MD at 0817 CC: [id number] DICTATION DATE: 02/13/20 1058 ASSESSMENT COUNSELOR: 02/13/20 2213 DEP CLI 02/13/20 [facility] [address] [place] [address]
== END 2020-02-13 15:00 | disposition home or self-care (01) ==
LOC: D.CATH 07:57
PROVIDERS: ATTEND Internal Medicine Interventional Cardiology
DX: I25.119 Atherosclerotic heart disease of native coronary artery with unspecified angina pectoris (principal); R06.00 Dyspnea, unspecified; I10 Essential (primary) hypertension; E78.5 Hyperlipidemia, unspecified; Z72.0 Tobacco use

== ENCOUNTER → 2020-03-17 09:05 | Outpatient (CLI) | payer MEDICARE ==
[2020-02-13 09:14] VITALS: BMI 29.7
[~2020-03-17 09:05] MED LIST changes: +LISINOPRIL20 MG PO; +OMEPRAZOLE20 M1 PO
== END | disposition home or self-care (01) ==
LOC: D.LAB 09:05 → D.LABREF 09:05
PROVIDERS: ATTEND Orthopaedic Surgery
DX: M17.11 Unilateral primary osteoarthritis, right knee (principal)

== ENCOUNTER 2020-03-18 16:13 | Inpatient (IN) | payer MEDICARE ==
[~2020-03-18] VITALS: Ht 177.8 cm; Wt 93.0 kg
[2020-04-08] MEDS ORDERED: ALBUTEROL0.63 MG/3 INH (11:04)
[2020-04-08] MEDS ORDERED: VENTOLIN HFA [SP8 GM INH (11:05)
[2020-04-09] MEDS ORDERED: IPRAT-ALBUT 0.5-3 ML UPD (10:44)
[2020-04-09] MEDS ORDERED: CETIRIZINE HCL5 M1 PO (10:45)
[2020-04-09] MEDS ORDERED: MUCINEX DM ER1 EAC1 PO (10:45)
[2020-04-09 11:58] LABS: BASOPHILS 0.2 % (0-2); EOSINOPHILS 0.9 % (0-7); HEMATOCRIT 47.6 % (42.0-54.0); HEMOGLOBIN 15.7 g/dL (13.5-17.5); IMMATURE GRANULOCYTES 0.6 % (0-5); LYMPHOCYTES 10.7 % (15-50); MCV 93.9 fL (80.0-100.0); MEAN PLATELET VOLUME 9.2 fL (7.4-10.4); MONOCYTES 5.4 % (2-11); NEUTROPHILS 82.2 % (40-80); PLATELET COUNT 218 10x3/uL (130-400); RBC 5.07 10x6/uL (4.20-6.10); RDW 13.4 % (11.5-14.5); WBC 8.9 10x3/uL (4.8-10.8)
[2020-04-09 12:07] LABS: APTT 26.7 SECONDS (22.8-39.4); INR 0.89 (0.85-1.17)
[2020-04-09 12:08] LABS: CALC OSMOLALITY 283 mosm/kg (275-300); CALCIUM 8.9 mg/dL (8.5-10.1); CARBON DIOXIDE 27.7 mmol/L (21.0-32.0); CHLORIDE - SERUM 105 mmol/L (98-107); CREATININE - SERUM 1.1 mg/dL (0.6-1.3); GLUCOSE 133 mg/dL (74-106); POTASSIUM - SERUM 4.6 mmol/L (3.5-5.1); SODIUM 140 mmol/L (136-145); UREA NITROGEN 20 mg/dL (7-18); eGFR NON AFRICAN AMERICAN 75 mL/min (90-120)
[2020-04-16 08:04] VITALS: BP 102/82; BMI 29.6
--- NOTE | 2020-04-16 10:22 | NUR ---
RIGHT LEG CLEANSED WITH ALCOHOL FROM THIGHT TO TOES CIRCUMFERENTIALLY PRIOR TO PREP. RN IN STERILE ATTIRE FOR PREP. RIGHT LEG PREPPED WITH CHLORAPREP X3 FRO THIGH TO TOES CIRCUMFERENTIALLY. PLASMA BLADE SET TO 6/8 GROUNDING PAD LEFT THIGH LOT#[id number] 06/12/2021
--- NOTE | 2020-04-16 10:25 | NUR ---
DR. OHARA JOINT COCKTAIL ON BACK TABLE.
--- NOTE | 2020-04-16 12:37 | NUR ---
OK TO D/C FROM PACU WITH PAIN OF "7" PER ANESTHESIA
[2020-04-16 12:47] VITALS: BP 124/72
[2020-04-16 13:42] VITALS: BP 106/71; BMI 29.4
--- NOTE | 2020-04-16 14:58 | NUR ---
RECEIVED PATIENT FROM RECOVERY. ALERT AND ORIENTED. VSS. CARE RESUMED. DAVOL DRAIN NOT STAYING COMPRESSED. DOCTOR NOTIFIED. RESPIRATIONS EVEN NON LABORED. NO SIGNS OF DISTRESS NOTED. SIDE RAILS UP X4. CALL LIGHT IN REACH. WILL CONTINUE TO MONITOR FOR SAFETY.
--- NOTE | 2020-04-16 19:01 | NUR ---
PATIENT ALERT AND ORIENTED. RESTING QUIETLY IN BED WITH EYES OPEN. RSPIRATIONS EVEN NON LABORED. NO SIGNS OF DISTRESS NOTED. DENIES FURTHER NEEDS. SIDE RAILS UP X4. CALL LIGHT IN REACH. WILL CONTINUE TO MONITOR FOR SAFETY.
[2020-04-16 20:00] VITALS: BP 95/57
--- NOTE | 2020-04-16 20:00 | NUR ---
ALERT SITTING UP IN BED CPM IN USE, REPORST HAVING SOME PAIN TO KNEE, ASKING ABOUT PAIN MEDS, INSTRUCTED HAS SCHEDULED TORDOL DUE WILL GIVE THAT BP IS RUNNING LOW NEED TO HOLD OFF ON PEROCET AT THIS TIME, PT AGREED, SEE SHIFT ASSESSMENT, CALL LIGHT IN REACH AT BEDSIDE
[2020-04-16 23:38] VITALS: BP 108/49
--- NOTE | 2020-04-16 23:41 | NUR ---
AWAKE SITTING UP IN BED WATCHING TV, REQUESTING PAIN MED, PEROCET GIVEN
[2020-04-17 04:30] VITALS: BP 109/73
[2020-04-17 06:23] LABS: HEMATOCRIT 41.8 % (42.0-54.0); HEMOGLOBIN 13.6 g/dL (13.5-17.5); MCH 30.6 pg (26.0-34.0); MCHC 32.5 g/dL (31.0-37.0); MCV 94.1 fL (80.0-100.0); MEAN PLATELET VOLUME 9.4 fL (7.4-10.4); RBC 4.44 10x6/uL (4.20-6.10); RDW 13.4 % (11.5-14.5); WBC 13.4 10x3/uL (4.8-10.8)
[2020-04-17 07:31] VITALS: BP 117/71
--- NOTE | 2020-04-17 08:00 | NUR ---
AWAKE AND ALERT. ORIENTED X3. C/O BACK INTENSIVE PAIN. ASSISTED UP TO AMBULATE. DID 50 FEET WITH MIN ASSIST OF ONE. REPORTS PAIN IMPROVED WITH ACTIVITY. LUNGS ARE CLEAR BILATERALLY, NO COUGH NOTED. SKIN IS INTACT WITHOUT REDNESS EXCEPT INCISION TO RIGHT KNEE WHICH HAS A DRY INTACT DRESSING IN PLACE. IV TO LEFT HAND IS PATENT WITHOUT REDNESS AT INSERTION SITE. AT BEDSIDE.
--- NOTE | 2020-04-17 10:00 | NUR ---
RESTING QUIETLY IN BED. IN ROOM. DENIES NEEDS.
[2020-04-17 12:00] VITALS: BP 104/56
--- NOTE | 2020-04-17 12:20 | NUR ---
PAIN MEDICATION GIVEN MARIANA NERI
--- NOTE | 2020-04-17 12:44 | NUR ---
CPM STARTED. STRIP PLACE ACROSS ANKLE
--- NOTE | 2020-04-17 13:14 | NUR ---
CPM STOPPED FOR PT
--- NOTE | 2020-04-17 13:26 | NUR ---
STARTED ON CPM ICE PACK PLACED ON RIGHT KNEE WITH STRAP ACROSS ANKLE
--- NOTE | 2020-04-17 13:41 | NUR ---
IN ROOM ROUNDING
[2020-04-17 14:17] VITALS: Ht 177.8 cm; Wt 93.0 kg
--- NOTE | 2020-04-17 14:32 | MORECARE ---
CASE MANAGEMENT DISCHARGE SUMMARY PATIENT: DARIUS SALVADOR UNIT: [id number] ADM DATE: 04/16/20 AGE: 49 : [birth year] SEX: M ROOM/BED: D.1211 AUTHOR: SHAN KLINE PHYSICIAN: REFERRING PHYSICIAN: ESTRADA OHARA MD DATE OF SERVICE: 04/17/20 Discharge Plan Patient Name: DARIUS SALVADOR [facility] [facility] 1970 Planned Disposition: Home with Home Health Anticipated Discharge Date: Discharge Date: Expected LOS: Initial Reviewer: [email or web address] Initial Review Date: 04/16/2020 Generated: 04/17/20 3:31 pm DCPIA - Discharge Planning Initial Assessment Updated by [email or web address]: Allie Austin on 04/17/20 2:31 pm * Is the patient Alert and Oriented? Yes * How many steps to enter\exit or inside your home? * PCP OSM[facility]` * Pharmacy [facility] * Preadmission Environment Home with Family * ADLs Independent * Equipment Bedside Commode Rolling Walker Shower Chair Walker * List name and contact numbers for known caregivers / representatives who currently or will assist patient after discharge: PRIYA () [phone] * Verbal permission to speak to the caregivers and representatives has been obtained from the patient. N/A * Community resources currently utilized None * Additional services required to return to the preadmission environment? Yes * Can the patient safely return to the preadmission environment? Yes * Has this patient been hospitalized within the prior 30 days at any hospital? No External Providers External Provider: [facility] Next Contact Date: Service Request Date: Service Type: Resolution: Reviewer: Comments: External Provider: Lara Next Contact Date: Service Request Date: Service Type: Resolution: Reviewer: Comments: Patient Name: DARIUS SALVADOR Page [id number] at 1432 All edits/amendments must be made on the electronic document DICTATION DATE: 04/17/20 1432 BENDER HAND: WALTER 04/17/20 1432 RPT#: [id number] DC DATE: STATUS: ADM IN [facility] [address] [facility] [place] [address] END OF REPORT
--- NOTE | 2020-04-17 14:40 | MORECARE ---
CASE MANAGEMENT DISCHARGE SUMMARY PATIENT: DARIUS SALVADOR UNIT: [id number] ADM DATE: 04/16/20 AGE: 49 : 66 SEX: M ROOM/BED: D.1211 AUTHOR: ELIUD,DOC PHYSICIAN: REFERRING PHYSICIAN: ESTRADA OHARA MD DATE OF SERVICE: 04/17/20 Discharge Plan Patient Name: DARIUS SALVADOR Facility: [facility]:[place] : 1970 Planned Disposition: Home with Home Health Anticipated Discharge Date: Discharge Date: Expected LOS: Initial Reviewer: [email or web address] Initial Review Date: 04/16/2020 Generated: 04/17/20 3:39 pm Comments DCP- Discharge Planning Updated by [email or web address]: Allie Austin on 04/17/20 1:[address] Patient Name: DARIUS SALVADOR Admission Status: Elective Accout number: [id number] Admission Date: 04-16-2020 : 1970 Admission Diagnosis: Attending: ANGEL Current LOS: 1 Anticipated DC Date: Planned Disposition: Home with Home Health Primary Insurance: [employer] ADV Discharge Planning Comments: CM met with patient to complete initial dc planning assessment. CM educated patient on the CM role and verbal consent given by patient to complete assessment. Patient lives at home with his where he is independent with his care. At discharge patient plans to return home and feels this is a safe discharge. CM discussed availability of home health, rehab services, and medical equipment. He will need home health. PETTY with [facility], I have sent the referral over and spoke with Diane. She stated the start of care will be Tuesday. Patient has a shower chair and a bsc. He does need a walker, [facility] takes his insurance and will be delivering the walker to his room today before he discharges. 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 Patient denied known discharge needs at this time. CM will continue to follow and will assist as needed with dc plans/needs. Sql Dba: Allie Austin DCPIA - Discharge Planning Initial Assessment Updated by [id number]: Allie Austin on 04/17/20 2:31 pm * Is the patient Alert and Oriented? Yes * How many steps to enter\exit or inside your home? * PCP [facility]` * Pharmacy [facility] * Preadmission Environment Home with Family * ADLs Independent * Equipment Bedside Commode Rolling Walker Shower Chair Walker * List name and contact numbers for known caregivers / representatives who currently or will assist patient after discharge: PRIYA () [phone] * Verbal permission to speak to the caregivers and representatives has been obtained from the patient. N/A * Community resources currently utilized None * Additional services required to return to the preadmission environment? Yes * Can the patient safely return to the preadmission environment? Yes * Has this patient been hospitalized within the prior 30 days at any hospital? No Coverage Notice Reviewer: [id number] Melo Austin Notice Issued Date-Time: 04/17/2020 14:15 Notice Type: Patient Choice Letter Notice Delivered To: Patient Relationship to Patient: [employer] Worker Name: Delivery Method: HAND - Hand Delivered Analy Days: Prior Verbal Notification: Recipient Understood Notice: Yes Recipient Signature: Yes Med Rec Note Co-signed by Attending: Coverage Notice Comment: Last DP export: 04/17/20 1:32 p Patient Name: DARIUS SALVADOR Page [id number] at 1440 All edits/amendments must be made on the electronic document DICTATION DATE: 04/17/201438 PAPER FOLDING MACHINE OPERATOR: WALTER 04/17/20 143 RPT#: [id number] DC DATE: STATUS: ADM IN [facility] [address] [place] [address] END OF REPORT
--- NOTE | 2020-04-17 14:40 | NUR ---
DC'D IV LEFT WRIST. CATH INTACT. TOLERTED WELL.
[2020-04-17] MEDS ORDERED: NICODERM CQ1 EAC1 TOPICAL (15:06)
[2020-04-17] MEDS ORDERED: ELIQUIS2.5 MG PO (15:40)
--- NOTE | 2020-04-17 16:00 | NUR ---
DISCHARGED TO HOME AMBULATORY WITH . DISCHARGE INSTRUCTIONS GIVEN BOTH VERBALLY AND WRITTEN. ALL QUESTIONS ANSWERED. PATIENT ABLE TO REPEAT DISCHARGE INSTRUCTIONS GIVEN. ALL BELONGINGS WITH PATIENT. TOOK NEEDED PRESCRIPTIONS TO PHARMACY OF CHOICE.
--- NOTE | 2020-04-18 14:41 | OP ---
PATIENT NAME: DARIUS SALVADOR MEDICAL RECORD: [id number] :[birth year] [facility] ADMISSION DATE:04/16/20 SURGEON: ESTRADA OHARA MD DATE OF OPERATION: 04/16/2020 PREOPERATIVE DIAGNOSIS: Osteoarthritis, right knee. POSTOPERATIVE DIAGNOSIS: Osteoarthritis, right knee. PROCEDURE PERFORMED: Right total knee arthroplasty. INDICATIONS FOR THE PROCEDURE: Mr. Salvador is a 49-year-old male with a history of worsening right knee pain. He has had pain in the knee for some time, but it has been getting progressively worse and it is beginning to affect his ADLs. Pain is located mostly over the medial knee. It is worse with weightbearing activities. He has failed conservative management to this point and has elected to proceed with surgery for right total knee arthroplasty. He was initially scheduled for Dr. Machado, but transferred to my schedule due to timing. Risks, benefits, alternatives of surgery were discussed with the patient including but not limited to pain, infection, bleeding, damage to surrounding structures, blood clots and potential need for further surgery. All questions were answered and consent was obtained. DESCRIPTION OF PROCEDURE: The patient was met in the holding area where his identity and confirmation of procedure was performed. The right lower extremity was marked. He was taken to the operating room where he was placed supine on the operating table and anesthesia was administered. Tourniquet was applied to the right thigh and the right leg was prepped and draped in a sterile fashion. The patient received preoperative antibiotics as well as TXA and a timeout was performed before initiating the case. On initiation of the case, leg was exsanguinated and the tourniquet was raised. Total tourniquet time was 97 minutes. A medial parapatellar approach was utilized for exposure. The knee was placed in flexion. Incision was made over the anterior knee, dissecting down to the extensor mechanism. The quad tendon was then split along its medial border curving medially around the patella and down the medial border of the patellar tendon. The knee was then taken into extension. Tissue from the posterior fat pad of the patella over the anterior distal femur was excised. A flap tissue off the medial tibial plateau was elevated and a portion of the medial meniscus was excised. The patella was then everted. The knee was brought back into flexion. Cruciate ligaments were excised and Kermit's line was marked. The femoral tunnel was then drilled for guide placement. The guide was inserted. The distal femoral cutting block was then pinned into position. Distal femoral cut was completed. The sizing guide for distal femur was then placed. The femur was sized to a size 70. The block was then pinned into position. Anterior and posterior and chamfer cuts were completed. Bony pieces were removed. The trial for a box cut was then placed. It was adjusted for alignment and then pinned into place. Box cut was completed using a reciprocating saw and osteotome. We then turned our attention to the tibia. A PCL retractor was placed. The remainder of the medial and lateral menisci was excised. Our extramedullary tibial guide was then placed and adjusted for alignment. A 4 mm was taken off the medial tibial plateau. The cutting block guide was then pinned into place and our tibial cut was completed. Bony pieces were removed and the tibia was sized to a size 79. Tibial tray was pinned into place. The femoral trial was then placed. The knee was trialed with the size 10 poly, felt to have good fit and stability throughout range of motion. OPERATIVE REPORT [id number] DARIUS SALVADOR Patella was then everted. Cautery was used around the circumference. Patella was then cut, free handed to the floor of the lateral facet. It was sized to a size 37 and drilled. The knee was brought back into flexion and the femoral trial was removed. The tibia was brought forward. Retractors were placed. The tibia was then prepared using a reamer and punch. Trial components were removed. Our laminar caponizer was inserted. Posterior osteophytes were removed from the back of the distal femur. The knee was then taken into extension, irrigated thoroughly with saline. Joint solution was injected around the capsule proximal tibia and the distal femur. Bony ends were then dried. The knee was repositioned in flexion. Our final components were then cemented into place. The size 10 poly was placed. Knee was held in full extension while the cement was allowed to dry. Excess cement was removed throughout this process. The patella was held with a patellar clamp. Once the cement was dry, the knee was then taken through motion and felt to have some slight instability, both in flexion and extension and we then trialed a size 12 poly, which was more secure and the final size 12 posterior stabilized poly was placed and clipped into position. Knee was again taken through range of motion, had good fit and stability. The knee was irrigated thoroughly with saline. The joint was placed in the lateral gutter. The extensor mechanism was closed with #1 Vicryl suture. Subcutaneous tissues were irrigated thoroughly with saline. The remainder of the joint solution was injected. Subcutaneous tissue was closed with 2-0 Vicryl and skin was closed with uriel. Sterile dressing was placed. The patient was turned back over to anesthesia. He was awakened, extubated, and taken to recovery room in stable condition. POSTOPERATIVE PLAN: The patient is going to be admitted to the floor for routine postoperative care. He received 24 hours postoperative antibiotics. He will be started on DVT prophylaxis tomorrow. Physical therapy will be consulted to assist with mobilization, weightbearing as tolerated on the right lower extremity. PLAN: Home with home health therapy later this week. ANESTHESIA: General with peripheral nerve block. COMPLICATIONS: None. ESTIMATED BLOOD LOSS: 100 mL. TRANSINT:[id number] Voice Confirmation ID: [id number] DOCUMENT ID: [id number] ESTRADA OHARA MD at 1441 CC: [id number] DICTATION DATE: 04/16/20 1457 HIDE AND SKIN PROCESSING WORKER: 04/16/20 1635 DIS IN 04/17/20 [id number] [place] [address]
== END 2020-04-17 16:00 | disposition home health service (06) | DRG 470 ==
LOC: D.SDCHOLD 04-09 10:00 → D.M3 04-16 06:51 → D.SDCHOLD 04-16 07:30 → D.M3 04-16 12:27
PROVIDERS: Anesthesiology; ADMIT Orthopaedic Surgery; ATTEND Orthopaedic Surgery
PROC: 0SRC0J9 Replacement of Right Knee Joint with Synthetic Substitute, Cemented, Open Approach (ICD-10-PCS; principal; 2020-04-16 09:00)
DX: M17.11 Unilateral primary osteoarthritis, right knee (principal); I25.10 Atherosclerotic heart disease of native coronary artery without angina pectoris; I10 Essential (primary) hypertension; J43.9 Emphysema, unspecified